=== PATIENT | female | born 1965 | race Two or more races ===

== ENCOUNTER 2024-03-06 12:20 | Emergency (ER) | payer OTHER ==
--- NOTE | 2024-03-06 13:14 | RAD REPORT ---
EXAM DESCRIPTION: Martínez Single View03/06/2024 12:46 pm CLINICAL HISTORY: Cough COMPARISON: none FINDINGS: The lungs appear clear of acute infiltrate. The heart is mildly to moderately enlarged IMPRESSION: No acute abnormalities displayed
[2024-03-06 13:23] LABS: Anion Gap 6.7 mEq/L (5.0-15.0); Potassium 3.7 mEq/L (3.5-5.1); Troponin High Sensitivity 7.1 pg/mL (<58.9)
[2024-03-06 13:24] LABS: Absolute Eosinophils 0.1 K/uL (0-0.5); Absolute Lymphocytes (CBC) 1.3 K/uL (0.7-4.9); Absolute Monocytes 0.4 K/uL (0.1-1.3); Absolute Neutrophil 2.2 K/uL (1.8-8.0); Basophils % 1.1 % (0-1.3); Eosinophils % 3.7 % (0-4.4); Hematocrit 37.1 % (36.0-45.0); Hemoglobin 11.6 g/dL (12.0-15.0); Lymphocytes % 31.6 % (15.3-44.8); MCH 23.4 pg (27.0-35.0); MCHC 31.1 g/dL (32.0-36.0); MCV 75.1 fL (80-100); MPV 8.4 fL (7.6-11.3); Monocytes % 9.9 % (3.3-12.3); Neutrophils % 53.7 % (41.7-73.7); Nucleated Red Blood Cells % 0.1 % (0-0); Platelets 135 thou/uL (152-406); RBC Red Blood Cell Count 4.94 M/uL (3.86-4.86); Red Cell Distribution Width 15.1 % (12.1-15.2)
[2024-03-06 13:25] LABS: PT Prothrombin Time 10.7 SECONDS (9.4-12.5); Protime INR 0.97
[2024-03-06] MEDS ORDERED: DIPHENHYDRAMINE 50 MG/ML VIAL ONE (13:40)
[2024-03-06] MEDS ORDERED: MECLIZINE HCL 12.5 MG TAB ONE (13:40)
[2024-03-06] MEDS ORDERED: NA CHLORIDE 0.9% 1,000 ML ONE (13:41)
[2024-03-06] MEDS ORDERED: METOCLOPRAMIDE 10 MG/2mL INJ ONE (13:41)
--- NOTE | 2024-03-06 13:47 | RAD REPORT ---
EXAM DESCRIPTION: CT - Head Brain Wo Cont - 03/06/2024 1:26 pm CLINICAL HISTORY: dizzyness COMPARISON: None TECHNIQUE: Computed axial tomography of the head was obtained. IV contrast was not requested. All CT scans are performed using dose optimization technique as appropriate and may include automated exposure control or mA/KV adjustment according to patient size. FINDINGS: An intracranial bleed is not seen The ventricles are normal in caliber No extra-axial fluid collection is noted. No significant hypodensity density within the brain Cerebellar tonsillar ectopy Fluid within the sinuses/ mastoids is not seen. IMPRESSION: No acute intracranial abnormality is seen Cerebellar tonsillar ectopy If patient's symptoms persist MRI of the brain would be recommended
--- NOTE | 2024-03-06 14:02 | RAD REPORT ---
EXAM DESCRIPTION: CTHead angio03/06/2024 1:27 pm CLINICAL HISTORY: Dizziness COMPARISON: none TECHNIQUE: 100 cc Isovue [address] angiogram of the head was obtained. 3D MIPS reconstruction performed. All CT scans are performed using dose optimization technique as appropriate and may include automated exposure control or mA/KV adjustment according to patient size. FINDINGS: The basilar, anterior cerebral, middle cerebral and posterior cerebral arteries do not dem onstrate a significant stenosis origin right posterior cerebral artery An aneurysm is not seen No large vessel occlusion IMPRESSION: No significant abnormality is displayed
--- NOTE | 2024-03-06 14:02 | RAD REPORT ---
EXAM DESCRIPTION: Jaymie Angio03/06/2024 1:27 pm CLINICAL HISTORY: Dizziness COMPARISON: None TECHNIQUE: 100 cc Isovue [address] angiogram of the neck was obtained. 3D MIPS reconstruction performed. All CT scans are performed using dose optimization technique as appropriate and may include automated exposure control or mA/KV adjustment according to patient size. FINDINGS: Mild plaque is present within common carotid, i proximal and mid nternal carotid and exter nal carotid arteries bilaterally Moderate calcified plaque distal left internal carotid artery. Mild calcified plaque distal right int ernal carotid artery Vertebral arteries unremarkable No dissection is seen. IMPRESSION: Moderate calcified plaque distal left internal carotid artery results in an approximatel y 55 60% stenosis [place] crier[place] Mild stenosis 0 to 49 % Moderate stenosis 50-69% Severe stenosis 70-99%
--- NOTE | 2024-03-06 15:37 | RAD REPORT ---
EXAM DESCRIPTION: MRI - Brain Wo Cont - 03/06/2024 3:10 pm CLINICAL HISTORY: Dizziness COMPARISON: Head CT March 06, 2024 CT TECHNIQUE: Axial, sagittal, and coronal magnetic resonance images of the brain were obtained. FINDINGS: Cerebellar tonsillar ectopia No significant abnormal signal within brain Diffusion-weighted/ADC mapping does not reveal evidence of acute infarction. The ventricles are normal caliber. An extra-axial fluid collection is not noted. Fluid within the sinuses/mastoids is not seen IMPRESSION: No acute intracranial abnormality noted
--- NOTE | 2024-03-06 15:40 | EDPHYS ---
Physician Documentation [facility] Name: Arnulfo Barajas Age: 58 yrs Sex: Female : 1965 Arrival Date: 03/06/2024 Time: 12:20 Bed 4 Private MD: ED Physician Krunal Blankenship HPI: 03/06 12:58 This 58 yrs old Female presents to ER via Wheelchair with complaints of Dizziness, High ec2 Blood Pressure. 12:59 Patient arrives today for evaluation of dizziness. Patient reports that she has been ec2 experiencing dizziness for many months, states its intermittent, states that today's episode occurred when she woke up. She says she went to bed normal and subsequently woke up and felt dizzy. States that she feels worse and dizziness with her eyes open. Denies any falls injuries or trauma. Reports no history of stroke. Does report history of hypertension.. Historical: - Allergies: 12:33 No Known Allergies; ap3 - Home Meds: 12:33 losartan oral [Active]; ap3 12:34 Metoprolol Tartrate Oral [Active]; db - PMHx: 12:33 Hypertensive disorder; ap3 - Immunization history:: Adult Immunizations unknown. - Infectious Disease History:: Denies. - Social history:: Smoking status: Patient denies any tobacco usage or history of. ROS: 12:59 Constitutional: as per hpi ec2 Exam: 12:59 Constitutional: GEN: NAD Head: atraumatic Eyes: EOMI Ears: External ears are ec2 normal. CV: regular rate LUNGS: no respiratory distress ABD: non-distended SKIN: no evidence of rashes MSK: no evidence of trauma NEURO: moves all extremities equally, cranial nerves II through XII intact, strength intact all 4 extremities, no pronator drift, sensation intact throughout lower extremities. Vital Signs: 12:31 BP 197 / 97; Pulse 64; Resp 18; Temp 98.1; Pulse Ox 100% ; Weight 58.97 kg; Height 5 ap3 ft. 0 in. ; 13:05 BP 190 / 100; ec2 13:57 BP 144 / 83; ec2 14:21 BP 150 / 79; Pulse 60; Resp 16; Pulse Ox 100% on R/A; iw 16:18 BP 139 / 83; Pulse 65; Resp 18; Pulse Ox 100% on R/A; ld1 12:31 Body Mass Index 25.39 (58.97 kg, 152.4 cm) ap3 MDM: 12:34 Patient medically screened. ec2 12:59 Data reviewed: vital signs. ED course: Patient arrives today for evaluation of ec2 dizziness and elevated blood pressure. Examination remarkable for neuro intact individual is otherwise in no acute distress with a reassuring examination. Will obtain lab work, CT scan of the head as well as CT angio head and neck. Differential diagnosis includes vertigo, peripheral versus central, additionally electrolyte disturbances, pathological stenosis, anemia.. 13:06 ED course: EKG independently reviewed and interpreted by me, shows normal sinus rhythm, ec2 rate of 69, no acute ST segment elevations, intervals are nonconcerning.. 13:37 ED course: Metabolic profile shows appropriate electrolytes, CBC shows slight anemia. ec2 BNP minimally elevated, coagulation profile unremarkable. Troponin within normal ranges, chest x-ray independently reviewed and interpreted by me, shows no acute intrathoracic process. . 14:03 ED course: CT angio head and neck show no acute critical stenosis. On reassessment ec2 patient reports improvement in her symptoms despite declining medications at this time. Given the patient has an intact neurologic examination, and is well-appearing no acute distress, has marked improvement in symptoms despite no medical management as well as recurring similar bouts of vertigo, I suspect this is peripheral vertigo in nature. Patient is hypertensive however does have some risk factors including her age, will obtain MRI.. 15:39 ED course: MRI negative for acute intracranial pathology, no evidence of stroke. Will ec2 discharge home. Have patient follow-up primary care doctor. Will prescribe patient meclizine as needed. Return precautions given.. 03/06 12:34 Order name: Basic Metabolic Panel; Complete Time: 13:37 ec2 03/06 12:34 Order name: CBC with Diff; Complete Time: 13:37 ec2 03/06 12:34 Order name: NT PRO-BNP; Complete Time: 13:37 ec2 03/06 12:34 Order name: PT-INR; Complete Time: 13:37 ec2 03/06 12:34 Order name: Troponin HS; Complete Time: 13:37 ec2 03/06 12:34 Order name: XRAY Chest (1 view); Complete Time: 13:37 ec2 03/06 12:57 Order name: CT Head Brain wo Cont; Complete Time: 13:56 ec2 03/06 12:57 Order name: CT Neck Angio; Complete Time: 14:03 ec2 03/06 13:08 Order name: Head angio; Complete Time: 14:03 EDMS 03/06 14:11 Order name: MRI - Brain Wo Cont; Complete Time: 15:39 ec2 03/06 12:34 Order name: EKG; Complete Time: 12:34 ec2 03/06 12:34 Order name: Cardiac monitoring; Complete Time: 13:20 ec2 03/06 12:34 Order name: EKG - Nurse/Tech; Complete Time: 13:17 ec2 03/06 12:34 Order name: IV Saline Lock; Complete Time: 13:17 ec2 03/06 12:34 Order name: Labs collected and sent; Complete Time: 13:17 ec2 03/06 12:34 Order name: O2 Per Protocol; Complete Time: 13:17 ec2 03/06 12:34 Order name: O2 Sat Monitoring; Complete Time: 13:17 ec2 Administered Medications: 15:41 Drug: Meclizine PO 25 mg PO once Route: PO; iw 15:42 Drug: NS 0.9% IV 1000 ml IV at 1 bolus Per protocol; 1000 mL bolus Route: IV; Rate: 1 iw bolus; Site: right antecubital; 15:42 Drug: diphenhydrAMINE IVP 25 mg IVP once Route: IVP; Site: right antecubital; iw 15:44 Drug: metoCLOPramide IVP 10 mg IVP once; over 1 to 2 minutes Route: IVP; Site: right iw antecubital; Disposition Summary: 03/06/24 15:39 Discharge Ordered Notes: Location: Home ec2 Condition: Stable ec2 Diagnosis - Other peripheral vertigo ec2 Followup: ec2 - With: Private Physician - When: - Reason: Re-evaluation by your physician Discharge Instructions: - Discharge Summary Sheet ec2 - Vertigo, [id number] ec2 Forms: - Medication Reconciliation Form ec2 - Antibiotic Education ec2 - Prescription Opioid Use ec2 - Patient Portal Instructions ec2 - Leadership Thank You Letter ec2 Prescriptions: - Meclizine 25 mg Oral Tablet - take 1 tablet ORAL route every 8 hours As needed; 30 tablet; Refills: 0, ec2 Product Selection Permitted Signatures: Dispatcher [employer] EDMS Gabbi Mccoy RN RN iw Shante Pittman RN RN ap3 Charity Larios RN RN db Krunal Blankenship MD MD ec2 Corrections: (The following items were deleted from the chart) 12:35 12:34 BASIC METABOLIC PANEL+C.LAB.BRZ ordered. EDMS EDMS 12:35 12:34 CBC+H.LAB.BRZ ordered. EDMS EDMS 12:35 12:34 PROBNP+C.LAB.BRZ ordered. EDMS EDMS 12:35 12:34 PROTIME (+INR)+COAG.LAB.BRZ ordered. EDMS EDMS 12:35 12:34 Troponin High Sensitivity+C.LAB.BRZ ordered. EDMS EDMS 12:58 12:58 Head Brain Wo Cont+CT.RAD.BRZ ordered. EDMS EDMS 12:58 12:58 Neck Angio+CT.RAD.BRZ ordered. EDMS EDMS 14:11 14:03 ED course: CT angio head and neck show no acute critical stenosis. On ec2 reassessment patient reports improvement in her symptoms despite declining medications at this time. Given the patient has an intact neurologic examination, and is well-appearing no acute distress, has marked improvement in symptoms despite no medical management as well as recurring similar bouts of vertigo, I suspect this is all peripheral vertigo in nature.. ec2 14:11 14:11 Brain Wo Cont+MRI.RAD.BRZ ordered. EDMS EDMS
--- NOTE | 2024-03-06 15:40 | ER ---
Nurse's Notes [facility] Name: Arnulfo Barajas Age: 58 yrs Sex: Female : 1965 Arrival Date: 03/06/2024 Time: 12:20 Bed 4 Private MD: Diagnosis: Other peripheral vertigo Presentation: 03/06 12:31 Chief complaint: Spouse and/or significant other states: WOKE UP TODAY AT 1100 WITH ap3 DIZZINESS, HIGH BP 195/110 AND VOMITING TODAY. Coronavirus screen: Client denies travel out of the [place] in the last 14 days. At this time, the client does not indicate any symptoms associated with coronavirus-19. Ebola Screen: Patient negative for fever greater than or equal to 101.5 degrees Fahrenheit, and additional compatible Ebola Virus Disease symptoms Patient denies exposure to infectious person. Patient denies travel to an Ebola-affected area in the 21 days before illness onset. No symptoms or risks identified at this time. Initial Sepsis Screen: Does the patient meet any 2 criteria? No. Patient's initial sepsis screen is negative. Does the patient have a suspected source of infection? No. Patient's initial sepsis screen is negative. Risk Assessment: Do you want to hurt yourself or someone else? Patient reports no desire to harm self or others. Onset of symptoms was March 06, 2024 at 11:00. 12:31 Method Of Arrival: Wheelchair ap3 12:31 Acuity: MAGALYS 2 ap3 Triage Assessment: 12:34 General: Appears in no apparent distress. uncomfortable, Behavior is calm, cooperative. db Pain: Complains of pain in head. Neuro: Level of Consciousness is awake, alert, obeys commands, Oriented to person, place, time, situation, Speech is normal, Facial symmetry appears normal, Reports dizziness, headache. Respiratory: Airway is patent Respiratory effort is even, unlabored, Respiratory pattern is regular, symmetrical. Historical: - Allergies: 12:33 No Known Allergies; ap3 - Home Meds: 12:33 losartan oral [Active]; ap3 12:34 Metoprolol Tartrate Oral [Active]; db - PMHx: 12:33 Hypertensive disorder; ap3 - Immunization history:: Adult Immunizations unknown. - Infectious Disease History:: Denies. - Social history:: Smoking status: Patient denies any tobacco usage or history of. Screenin:58 [facility] ED Fall Risk Assessment (Adult) History of falling in the last 3 months, iw including since admission No falls in past 3 months (0 pts) Confusion or Disorientation No (0 pts) Intoxicated or Sedated No (0 pts) Impaired Gait No (0 pts) Mobility Assist Device Used No (0 pt) Altered Elimination No (0 pt) Score/Fall Risk Level 0 - 2 = Low Risk Oriented to surroundings, Maintained a safe environment. Abuse screen: Denies threats or abuse. Denies injuries from another. Nutritional screening: No deficits noted. Tuberculosis screening: No symptoms or risk factors identified. Assessment: 12:55 General: Appears in no apparent distress. Behavior is calm, cooperative. Neuro: Level iw of Consciousness is awake, alert, obeys commands, Oriented to person, place, time, situation, Moves all extremities. Full function Reports dizziness. Cardiovascular: Patient's skin is warm and dry. Respiratory: Respiratory effort is even, unlabored, Respiratory pattern is regular. GI: Reports vomiting. Derm: Skin is intact, is healthy with good turgor. Musculoskeletal: Range of motion: intact in all extremities. 14:02 Reassessment: Patient appears in no apparent distress at this time. pt declines iw medication at this time Patient states feeling better. Patient states symptoms have improved. 15:42 Reassessment: Patient appears in no apparent distress at this time. Patient and/or iw family updated on plan of care and expected duration. Pain level reassessed. Patient is alert, oriented x 3, equal unlabored respirations, skin warm/dry/pink. 16:18 Reassessment: Patient appears in no apparent distress at this time. No changes from ld1 previously documented assessment. Patient and/or family updated on plan of care and expected duration. Pain level reassessed. Patient is alert, oriented x 3, equal unlabored respirations, skin warm/dry/pink. Vital Signs: 12:31 BP 197 / 97; Pulse 64; Resp 18; Temp 98.1; Pulse Ox 100% ; Weight 58.97 kg; Height 5 ap3 ft. 0 in. ; 13:05 BP 190 / 100; ec2 13:57 BP 144 / 83; ec2 14:21 BP 150 / 79; Pulse 60; Resp 16; Pulse Ox 100% on R/A; iw 16:18 BP 139 / 83; Pulse 65; Resp 18; Pulse Ox 100% on R/A; ld1 12:31 Body Mass Index 25.39 (58.97 kg, 152.4 cm) ap3 ED Course: 12:25 Patient arrived in ED. mg5 12:30 Krunal Blankenship MD is Attending Physician. ec2 12:33 Triage completed. ap3 12:34 Arm band placed on Patient placed in an exam room. db 12:43 Heidy Johnson, MALVIN is Primary Nurse. ld1 12:48 XRAY Chest (1 view) In Process Unspecified. EDMS 12:55 Initial lab(s) drawn, by me, sent to lab. Inserted saline lock: 20 gauge in right iw antecubital area, using aseptic technique. Blood collected. 13:28 CT Head Brain wo Cont In Process Unspecified. EDMS 13:29 CT Neck Angio In Process Unspecified. EDMS 13:29 Head angio In Process Unspecified. EDMS 15:09 MRI - Brain Wo Cont In Process Unspecified. EDMS 16:18 No provider procedures requiring assistance completed. IV discontinued, intact, ld1 bleeding controlled, No redness/swelling at site. 16:19 Patient has correct armband on for positive identification. Placed in gown. Bed in low ld1 position. Call light in reach. Side rails up X2. bus driver/monitor on. Pulse ox on. NIBP on. Door closed. Noise minimized. Warm blanket given. Administered Medications: 15:41 Drug: Meclizine PO 25 mg PO once Route: PO; iw 15:42 Drug: NS 0.9% IV 1000 ml IV at 1 bolus Per protocol; 1000 mL bolus Route: IV; Rate: 1 iw bolus; Site: right antecubital; 15:42 Drug: diphenhydrAMINE IVP 25 mg IVP once Route: IVP; Site: right antecubital; iw 15:44 Drug: metoCLOPramide IVP 10 mg IVP once; over 1 to 2 minutes Route: IVP; Site: right iw antecubital; Medication: 12:59 VIS not applicable for this client. iw Outcome: 15:39 Discharge ordered by . ec2 16:19 Discharged to home ambulatory, with family, ld1 16:19 Condition: stable 16:19 Discharge instructions given to patient, family, Instructed on discharge instructions, follow up and referral plans. Demonstrated understanding of instructions, follow-up care, medications, Prescriptions given X 2, 16:19 Patient left the ED. ld1 Signatures: Dispatcher [employer] Gabbi Walden RN RN iw Shante Pittman RN RN ap3 Heidy Johnson RN RN ld1 Charity Larios RN RN db [place], [place] mg5 Krunal Blankenship MD MD ec2 Corrections: (The following items were deleted from the chart) 14:03 14:02 Reassessment: Patient appears in no apparent distress at this time. Patient iw states feeling better. Patient states symptoms have improved. iw
[2024-03-06 16:48] VITALS: TEMP 98.1; O2SAT 100
[2024-03-06 17:06] VITALS: BP 139/83
== END 2024-03-06 16:19 | disposition home or self-care (01) ==
LOC: ER 12:20
DX: H81.399 Other peripheral vertigo, unspecified ear (principal); I10 Essential (primary) hypertension
CPT/HCPCS: 85025; 80048; 36415; 85610; 84484; 83880; 70450; 70496; 70498; 71045; 70551; Q9967; J8597; J2765; J1200; J7030; 93005